=== PATIENT | male | born 1955 | race Caucasian/White ===

== ENCOUNTER 2023-08-14 09:48 | Outpatient (OUT) | payer OTHER, SELFPAY ==
--- NOTE | 2023-08-14 10:15 | NM_ITS ---
Patient Name: DAKOTA WHITESIDE MR#: [id number] : 1955 Exam Date: 08/14/2023 Ordering Doctor: DR RAYSHAWN RUSSELL M.D. RADIOLOGY REPORT PROCEDURE: NM [facility] PERF SPECT REST STR COMPARISON: None. INDICATIONS: CHEST PAIN, DYSPNEA ON EXERTION TECHNIQUE: Exam Description: Stress/Rest two day protocol gated SPECT Rest Imagin.0 mCi Tc-99m Cardiolite IV on 08/14/2023 Stress Imaging 25.8 mCi Tc-99m Cardiolite IV on 08/18/2023 Exercise Protocol: 0.4 mg Lexiscan given IV Heart Rate (bpm): Rest: 59 Max: 69 PMHR: 46 Blood Pressure: Rest: 146/72 Max: 154/84 Symptoms: Rest and peak stress ECG findings were normal and the exercise portion of the study was normal per attending physician Dr. Paz . For more details please see separate cardiac stress test report. FINDINGS: QUALITY OF STUDY: Excellent. PERFUSION DEFECT: LOCATION: [place]. SIZE: Small (1-2 segments). SEVERITY: Mild. TYPE: Persistent. WALL MOTION: Normal. LV SIZE: Enlarged; EDV 146 mL. TID / TCD: None; 1.0 LVEF: Normal. Calculated EF 65%. SUMMARY: Myocardial perfusion imaging study has ABNORMAL findings. CONCLUSION: 1. No acute or reversible ischemia. 2. Small, fixed perfusion defect suspected involving the apex. 3. Left ventriculomegaly, 146 mL. 4. Normal wall motion and ejection fraction. Dictated by: Jorge Ayala M.D. on 08/19/2023 at 15:54 Approved by: Jorge Ayala M.D. on 08/19/2023 at 15:58
== END 2023-08-14 09:49 | disposition home or self-care (01) ==
LOC: NM 09:53
PROVIDERS: PCP Family Medicine; Visit Provider Family Medicine
DX: R07.89 Other chest pain (principal)
CPT/HCPCS: 78452; A9500

== ENCOUNTER 2023-08-18 09:12 | Outpatient (OUT) | payer SELFPAY ==
--- NOTE | 2023-08-18 | PCN_ITS ---
CARDIAC STRESS TEST Requesting Physician: Procedure Date: 08/18/2023 INDICATION: Dyspnea on exertion, chest pain. METHODS: After risks, benefits, and alternatives were explained, written informed consent was obtained. The patient was brought to the stress lab in the resting and fasting state. Lexiscan 0.4 mg was infused intravenously. He was monitored for the standard duration and discharged in a stable state. STRESS TEST INFORMATION: Resting heart rate was 59 beats per minute, increasing to a maximum of 69 beats per minute. Resting blood pressure was 146/72, with a maximum of 154/84. EKG: Rest EKG shows atrial fibrillation, slow ventricular response with a heart rate of 59 beats per minute. Incomplete right bundle branch block. Abnormal EKG. During infusion and recovery: No significant ST-T wave changes noted, no significant arrhythmias seen. IMPRESSIONS: 1. No ischemic EKG changes seen on Lexiscan Cardiolite stress test. 2. Nuclear images are to be read, interpreted, and reported in a separate dictation. CHUCKY
[2023-08-18] MEDS: REGADENOSON 0.4 MG/5 ML SYRINGE 0.400000000000000022 MG IV (10:11)
== END 2023-08-18 09:13 | disposition home or self-care (01) ==
PROVIDERS: PCP Family Medicine; Visit Provider Family Medicine
DX: R07.89 Other chest pain (principal)
CPT/HCPCS: 93017; J2785